=== PATIENT | male | born 1960 | race Caucasian/White ===

== ENCOUNTER 2018-06-16 13:46 | Day surgery (SDC) | payer OTHER ==
--- NOTE | 2018-06-16 12:00 | PDHPUP ---
History & Physical Update H&P update statement: This history and physical update is based on an assessment of the patient which was completed after admission or registration (within 24 hours), but prior to the surgery/procedure. H&P update: H&P reviewed & patient examined, no change in patient's condition since H&P completed
[~2018-06-16 13:46] MED LIST: HYDROCODONE/APAP 5/325 TAB PO SCH; POTASSIUM CL 20 MEQ TAB PO SCH
[2018-06-16] MEDS ORDERED: LR 1,000 ML IV ONE (15:39)
[2018-06-16] MEDS ORDERED: MIDAZOLAM 2 MG/2 ML VIAL IVP ONE (15:51)
--- NOTE | 2018-06-16 15:51 | PDANEPAE ---
ANE Review of Systems Review of Systems: ANE Patient History - Allergies Allergies/Adverse Reactions: No Known Allergies Allergy (Unverified 06/16/18 14:44) ANE Labs/Vital Signs - Vital Signs Height: 182.88 cm Weight: 111.13 kg ANE Physical Exam - Airway Neck exam: FROM Mallampati Score: Class 2 Mouth exam: normal dental/mouth exam - Pulmonary Pulmonary: no respiratory distress - Cardiovascular Cardiovascular: regular rate and rhythym - ASA Status ASA Status: III ANE Anesthesia Plan Total IV Anesthesia: Yes
[2018-06-16] MEDS ORDERED: BUPIVACAINE/EPI 0.5% 30 ML SDV ONE (15:52)
[2018-06-16] MEDS ORDERED: LIDO/EPI 1% **for epidural** 30 ML SDV ONE (15:53)
[2018-06-16] MEDS ORDERED: fentaNYL 100 MCG/2 ML INJ ONE (15:57)
[2018-06-16] MEDS ORDERED: PROPOFOL 200 MG/20 ML VIAL ONE (15:58)
[2018-06-16] MEDS ORDERED: LIDOCAINE 2% 100 MG/5 ML SYR ONE (15:58)
[2018-06-16] MEDS ORDERED: KETOROLAC 30 MG/1 ML SDV ONE (15:58)
[2018-06-16] MEDS ORDERED: RANITIDINE 50 MG/2 ML VIAL ONE (15:58)
[2018-06-16] MEDS ORDERED: METOCLOPRAMIDE 10 MG/2 ML VIAL ONE (15:58)
[2018-06-16] MEDS ORDERED: ALBUTEROL 3 ML DEYVIAL IH PRN (16:05)
[2018-06-16] MEDS ORDERED: ONDANSETRON 4 MG/2 ML VIAL IVP PRN (16:05)
[2018-06-16] MEDS ORDERED: fentaNYL 100 MCG/2 ML INJ IVP PRN (16:05)
[2018-06-16] MEDS ORDERED: NALOXONE HCL 0.4 MG/ML INJ IVP PRN (16:05)
--- NOTE | 2018-06-16 17:02 | POSTANESTH ---
Post Anesthetic Evaluation Cardiovascular Status: Similar to Pre-Op Cond Respiratory Status: Similar to Pre-op Cond. Level of Consciousness/Mental Status: Mildly Sleepy, Arousable Pain Control: Adequate, Prn Tx Ordered Nausea/Vomiting Control: Adequate, Prn Tx Ordered Complications Possibly Related to Anesthesia: None Noted
--- NOTE | 2018-06-16 17:02 | POSTOPPROG ---
Post Op Note Date of Operation: 06/16/18 Surgeon: Dylon Welch Anesthesiologist: Crescencio Noyola Anesthesia: GET(General Endotracheal) Pre-op Diagnosis: Incarcerated umbilical hernia Post-op Diagnosis: Same, Ascites Procedure: Umbilical hernia, paracentesis Findings: 5L clear ascites, small Inf/Abcess present in the surg proc area at time of surgery?: No EBL: Minimal Complications: no immediate Specimen(s): ascites, hernia sac
[2018-06-16 18:22] VITALS: BP 126/78
[2018-06-16] MEDS ORDERED: IOPAMIDOL (ISOVUE-300) 100 ML BTL ONE (18:39)
[2018-06-16] MEDS ORDERED: POTASSIUM CL 20 MEQ TAB PO ONE (19:19)
[2018-06-16 19:31] LABS: HEPATITIS A ANTIBODY IGM (BCH) NEGATIVE (NEGATIVE); HEPATITIS B CORE AB IGM NEGATIVE (NEGATIVE); HEPATITIS B SURFACE ANTIGEN NEGATIVE (NEGATIVE); HEPATITIS C ANTIBODY TOTAL NEGATIVE (NEGATIVE)
--- NOTE | 2018-06-17 05:49 | GOP ---
DATE OF OPERATION: 06/16/2018 SURGEON: Dylon Welch MD ANESTHESIA: General - Crescencio Noyola MD PREOPERATIVE DIAGNOSIS: 1. Incarcerated umbilical hernia. POSTOPERATIVE DIAGNOSIS: 1. Incarcerated umbilical hernia. 2. Ascites. PROCEDURE PERFORMED: 1. Umbilical herniorrhaphy. 2. Paracentesis. FINDINGS: Large volume ascites INDICATION FOR SURGERY: 58-year-old male with a 2-month history of abdominal distention, diarrhea, as well as umbilical pain. He presented to the office yesterday with severe umbilical pain x48 hours with evidence of an exquisitely painful incarcerated umbilical hernia. He is taken to the operating today for surgical repair. Risks and benefits were explained of bleeding, infection, recurrence, as well as bowel injury. All questions were answered. He desires to proceed DESCRIPTION OF PROCEDURE: General anesthesia was induced. The abdomen was pre injected with 0.5% Marcaine with epinephrine. A curvilinear infraumbilical incision was created. The umbilical sac was entered. A large volume of clear ascites was identified. This was evacuated for approximately 5 L. The patient remained hemodynamically normal throughout. The incarcerated omentum was excised. Portions of this were sent for pathologic sampling. Abdominal wall palpation showed no obvious nodularity. The 2 cm defect was opted to be closed primarily without the use of mesh given the new diagnosis of ascites. This was done primarily with a running Vicryl suture. The skin was then reapproximated in layers with absorbable sutures followed by Dermabond. The patient was extubated and taken to Recovery uneventfully. /[id number]/MODL MTDD
== END 2018-06-16 19:20 | disposition home or self-care (01) ==
LOC: FSGY 13:46
PROVIDERS: ATTEND Surgery
PROC: 0WQF0ZZ Repair Abdominal Wall, Open Approach (ICD-10-PCS; principal; 2018-06-16 16:00)
PROC: 0W9F3ZZ Drainage of Abdominal Wall, Percutaneous Approach (ICD-10-PCS; principal; 2018-06-16 16:00)
DX: K42.9 Umbilical hernia without obstruction or gangrene (principal); R18.8 Other ascites
CPT/HCPCS: G0472; J1885; J2001; J2250; J2704; J2765; J2780; J3010; Q9967

== ENCOUNTER → 2018-09-01 | Outpatient (CLI) | payer OTHER | LOC: FIMAGING 06:47 | PROVIDERS: ATTEND Internal Medicine Gastroenterology | DX: R18.8 Other ascites (principal); K74.60 Unspecified cirrhosis of liver; R16.1 Splenomegaly, not elsewhere classified; K76.6 Portal hypertension; N20.0 Calculus of kidney ==

== ENCOUNTER 2018-10-23 22:28 | Observation (INO) | payer OTHER ==
[2018-10-23] MEDS ORDERED: NS 500 ML IV ONE (23:22)
[2018-10-23] MEDS ORDERED: IOPAMIDOL (ISOVUE-300) 100 ML BTL ONE (23:40)
[2018-10-23] MEDS ORDERED: LACTULOSE 20 GM/30 ML UDCUP PO ONE (23:48)
[2018-10-23] MEDS ORDERED: ONDANSETRON 4 MG/2 ML VIAL IVP PRN (23:57)
[2018-10-23] MEDS ORDERED: ONDANSETRON DISINTEGRATING 4 MG TAB PO PRN (23:57)
[2018-10-24] MEDS ORDERED: D50W 25 GM/50 ML VIAL IVP PRN (01:36)
[2018-10-24] MEDS: FUROSEMIDE 40 MG TAB PO SCH ×2 (08:43→14:34)
[2018-10-24] MEDS: SPIRONOLACTONE 25 MG TAB PO SCH (08:43)
[2018-10-24] MEDS: LACTULOSE 20 GM/30 ML UDCUP PO SCH ×3 (08:43→21:03)
[2018-10-24] MEDS ORDERED: FUROSEMIDE 20 MG TAB PO SCH (09:00)
[2018-10-24] MEDS: INSULIN LISPRO 100 UNIT/ML SC SCH ×4 (09:22→21:03)
[2018-10-24] MEDS: RIFAXIMIN 550 MG TAB PO SCH ×2 (14:33→21:03)
[2018-10-24] MEDS ORDERED: ALBUMIN 25% 100 ML IV ONE (15:11)
[2018-10-24] MEDS ORDERED: LIDOCAINE 1% 300 MG/30 ML SDV ONE (15:30)
[2018-10-25] MEDS: INSULIN LISPRO 100 UNIT/ML SC SCH (08:34)
[2018-10-25] MEDS: RIFAXIMIN 550 MG TAB PO SCH (08:44)
[2018-10-25] MEDS: SPIRONOLACTONE 25 MG TAB PO SCH (08:44)
[2018-10-25] MEDS: FUROSEMIDE 40 MG TAB PO SCH (08:44)
[2018-10-25] MEDS: LACTULOSE 20 GM/30 ML UDCUP PO SCH (08:44)
[2018-10-25] MEDS ORDERED: SECUKINUMAB 300 MG SQ SCH (11:00)
[2018-10-26] MEDS ORDERED: metFORMIN HCL 500 MG TAB PO SCH (08:00)
[2018-10-26] MEDS ORDERED: ASCORBIC ACID 500 MG TAB PO SCH (09:00)
[2018-10-26] MEDS ORDERED: PANTOPRAZOLE SODIUM 40 MG TAB PO SCH (09:00)
[2018-10-26] MEDS ORDERED: MULTIVITAMINS 1 EACH TAB PO SCH (09:00)
[2018-10-26] MEDS ORDERED: CHOLECALCIFEROL VIT D3 1,000 UNITS TAB PO SCH (09:00)
== END 2018-10-25 12:43 | disposition home or self-care (01) ==
DX: K72.90 Hepatic failure, unspecified without coma (principal); E11.9 Type 2 diabetes mellitus without complications; K76.0 Fatty (change of) liver, not elsewhere classified; K74.60 Unspecified cirrhosis of liver; R18.8 Other ascites; K21.9 Gastro-esophageal reflux disease without esophagitis; K22.70 Barrett's esophagus without dysplasia; D64.9 Anemia, unspecified; D69.6 Thrombocytopenia, unspecified; D68.9 Coagulation defect, unspecified; E88.09 Other disorders of plasma-protein metabolism, not elsewhere classified
CPT/HCPCS: 49083; 70450; 74177; 93005; 96372; 96374; 96376; 99285; G0378